=== PATIENT | male | born 1965 | race Caucasian/White ===

== ENCOUNTER 2019-04-21 13:22 | Emergency (ER) | payer OTHER ==
[~2019-04-21] VITALS: Ht 188 cm; Wt 104.3 kg
[~2019-04-21 13:22] MED LIST: BETAPACE AF80 MG PO; CLEOCIN HCL150 MG PO; IBUPROFEN 800800 M1 PO; ZOCOR
[2019-04-21 13:25] VITALS: BP 134/83
[2019-04-21] MEDS ORDERED: CRESTOR20 MG PO (13:33)
[2019-04-21] MEDS ORDERED: DILTIAZEM ER180 M2 PO (13:33)
[2019-04-21] MEDS ORDERED: OMEPRAZOLE40 MG PO (13:34)
[2019-04-21] MEDS ORDERED: KEFLEX500 M1 PO (13:42)
== END 2019-04-21 13:50 | disposition home or self-care (01) ==
LOC: M.ERS 13:22
DX: S60.351A Superficial foreign body of right thumb, initial encounter (principal); I48.91 Unspecified atrial fibrillation; X58.XXXA Exposure to other specified factors, initial encounter; Y93.89 Activity, other specified; Y92.89 Other specified places as the place of occurrence of the external cause; Y99.8 Other external cause status